=== PATIENT | female | born 1970 | race Two or more races ===

== ENCOUNTER 2020-09-14 09:42 | Outpatient (CLI) | payer OTHER | END 2020-09-14 10:22 | disposition home or self-care (01) | LOC: SONOGRAMA 09:42 | PROVIDERS: ATTEND Pathology Anatomic Pathology & Clinical Pathology | DX: E04.1 Nontoxic single thyroid nodule (principal) ==

== ENCOUNTER 2021-01-11 08:26 | Outpatient (CLI) | payer OTHER | END 2021-01-11 08:34 | disposition home or self-care (01) | LOC: SONOGRAMA 08:26 | PROVIDERS: ATTEND Pathology Anatomic Pathology & Clinical Pathology | DX: E04.1 Nontoxic single thyroid nodule (principal) ==